=== PATIENT | female | born 1955 | race Caucasian/White ===

== ENCOUNTER 2017-02-18 06:56 | Day surgery (SDC) | payer OTHER ==
[~2017-02-18] VITALS: Ht 157.5 cm; Wt 85.0 kg
[2017-02-18 07:30] VITALS: BP 176/105; PULSE 91; TEMP 97.9
[2017-02-18] MEDS ORDERED: ALEVE LIQCAPS PO (07:46)
[2017-02-18] MEDS ORDERED: MACRODANTIN100 PO (07:46)
[2017-02-18 08:43] VITALS: BP 129/81; PULSE 78; TEMP 97.6
[2017-02-18 08:55] VITALS: BP 140/88; PULSE 78
[2017-02-18 09:10] VITALS: BP 142/80; PULSE 69
[2017-02-18 09:34] VITALS: BP 108/61; PULSE 78
== END 2017-02-18 09:30 | disposition home or self-care (01) ==
LOC: SDCO 06:56
DX: K57.32 Diverticulitis of large intestine without perforation or abscess without bleeding (principal); K62.4 Stenosis of anus and rectum; N82.3 Fistula of vagina to large intestine; K59.00 Constipation, unspecified; Z90.49 Acquired absence of other specified parts of digestive tract
CPT/HCPCS: OP; J2250; J3010; J7030